=== PATIENT | female | born 1960 | race Caucasian/White ===

== ENCOUNTER 2018-08-14 21:14 | Emergency (ER) | payer OTHER ==
[~2018-08-14] VITALS: Ht 180.3 cm; Wt 104.3 kg
[2018-08-14] MEDS ORDERED: PERCOCET 7.5-31 EACH (21:34)
[2018-08-14] MEDS ORDERED: XANAX 0.5 MG0.5 MG (21:35)
[2018-08-14] MEDS ORDERED: LASIX 20 MG TAB20 MG PO (21:36)
[2018-08-14] MEDS ORDERED: FLEXERIL (21:36)
[2018-08-14] MEDS ORDERED: SYNTHROID25 MC1 (21:36)
[2018-08-14] MEDS ORDERED: NEURONTIN 300300 M1 (21:37)
[2018-08-14] MEDS ORDERED: SPIRONOLACTONE25 M1 (21:37)
[2018-08-14] MEDS ORDERED: NEURONTIN 300300 M1 PO (21:37)
[2018-08-14] MEDS ORDERED: AMITRIPTYLINE H25 M2 (21:38)
[2018-08-14] MEDS ORDERED: VERELAN PM100 MG PO (21:38)
[2018-08-14 22:21] VITALS: BP 106/63
== END 2018-08-14 22:58 | disposition home or self-care (01) ==
LOC: M.ERS 21:14
DX: S43.492A Other sprain of left shoulder joint, initial encounter (principal); M79.7 Fibromyalgia; G47.30 Sleep apnea, unspecified; G43.909 Migraine, unspecified, not intractable, without status migrainosus; M19.90 Unspecified osteoarthritis, unspecified site; Z88.0 Allergy status to penicillin; Z88.2 Allergy status to sulfonamides; Z88.5 Allergy status to narcotic agent; Z88.8 Allergy status to other drugs, medicaments and biological substances; W18.39XA Other fall on same level, initial encounter; Y93.89 Activity, other specified; Y92.89 Other specified places as the place of occurrence of the external cause; Y99.8 Other external cause status